=== PATIENT | female | born 1995 | race Two or more races ===

== ENCOUNTER 2020-04-30 20:30 | Inpatient (IN) | payer OTHER ==
[2020-04-30] MEDS ORDERED: DEXTROSE 5%-LACTATED RINGERS 500 ML IV ONE ×2 (21:00→22:00)
[2020-04-30] MEDS ORDERED: AMPICILLIN - 2 GM in SODIUM CHLORIDE 100 ML IVPB ONE (23:30)
[2020-05-01] MEDS ORDERED: AMPICILLIN SODIUM 2 GM VIAL ONE (00:23)
[2020-05-01] MEDS ORDERED: PROMETHAZINE HCL 25 MG/1 ML VIAL IVPB ONE (00:30)
[2020-05-01] MEDS ORDERED: BUTORPHANOL TARTRATE 1 MG/ML VIAL IVPB ONE (00:30)
[2020-05-01 00:43] LABS: BASO % 0.1 % (0-2.0); EOS % 0.2 % (0-4.5); HEMATOCRIT 29.4 % (32.4-45.2); HEMOGLOBIN 9.4 GM/dL (10.7-15.3); LYMPH % 9.1 % (8-40); MCH 25.5 pg (25.7-33.7); MCHC 32.1 g/dl (32.0-36.0); MEAN CELL VOLUME 79.4 fl (80-96); MEAN PLT VOLUME 10.3 fl (7.5-11.1); MONO % 6.7 % (3.8-10.2); NEUT % 83.9 % (42.8-82.8); PLATELET COUNT 217 K/MM3 (134-434); RDW 16.8 % (11.6-15.6); WHITE BLOOD COUNT 11.7 K/mm3 (4.0-10.0)
[2020-05-01] MEDS ORDERED: BUTORPHANOL TARTRATE 2 MG/ML VIAL ONE (00:48)
[2020-05-01] MEDS ORDERED: PROMETHAZINE HCL 25 MG/1 ML VIAL ONE (00:48)
[2020-05-01 00:51] LABS: INR 1.02 (0.83-1.09); PROTHROMBIN TIME (PATIENT) 12.5 SEC (9.7-13.0)
[2020-05-01 00:54] LABS: ACTIVATED PTT 27.2 SECONDS (25.2-36.5)
[2020-05-01 01:01] LABS: CALCIUM 8.4 mg/dL (8.5-10.1); POTASSIUM 3.6 mmol/L (3.5-5.1)
[2020-05-01 01:05] VITALS: BMI 27.9
[2020-05-01 01:05] LABS: CREATININE 0.6 mg/dL (0.55-1.3)
[2020-05-01 01:52] LABS: BLOOD UREA NITROGEN 2.8 mg/dL (7-18)
[2020-05-01] MEDS ORDERED: ELECTROLYTE-148 SOLN 500 ML IV ONE ×2 (03:15→04:13)
[2020-05-01] MEDS ORDERED: FENTANYL/BUPIVACAINE/NS/PF - PCEA - 50 ML DISP.SYRIN EP ONE (03:27)
[2020-05-01] MEDS ORDERED: AMPICILLIN SODIUM 1 GM VIAL ONE ×2 (03:27→07:38)
[2020-05-01] MEDS ORDERED: PCA PUMP NR ONE (03:28)
[2020-05-01] MEDS: AMPICILLIN - 1 GM in SODIUM CHLORIDE 100 ML IVPB SCH ×2 (03:30→07:40)
[2020-05-01] MEDS ORDERED: NALOXONE HCL 0.4 MG/ML VIAL IVPUSH PRN (03:31)
[2020-05-01] MEDS ORDERED: LIDO 2%/EPI 1:200000 PRESRVFRE (20 ML SDVIAL) ONE (03:34)
[2020-05-01] MEDS ORDERED: FENTANYL/BUPIVACAINE/NS/PF - PCEA - 50 ML DISP.SYRIN EP SCH (03:45)
[2020-05-01 04:01] LABS: HIV INTERPRETATION NEGATIVE (NEGATIVE)
[2020-05-01] MEDS ORDERED: ELECTROLYTE-148 SOLN 1,000 ML IV SCH (04:15)
[2020-05-01] MEDS ORDERED: OXYTOCIN 30 UNITS in 0.9% NS 30 UNIT/500 ML INFUS.BAG IVPB SCH (05:30)
[2020-05-01] MEDS: DEXTROSE 5%-LACTATED RINGERS 1,000 ML IV SCH (07:40)
[2020-05-01] MEDS ORDERED: OXYTOCIN 20 UNITS in 0.9% NS 20 UNIT/1,000 ML INFUS.BAG IV ONE ×2 (07:57→12:19)
[2020-05-01] MEDS ORDERED: OXYTOCIN 30 UNITS in 0.9% NS 30 UNIT/500 ML INFUS.BAG IVPB ONE (08:00)
[2020-05-01] MEDS ORDERED: ONDANSETRON 4 MG/2 ML VIAL IVPUSH PRN (09:19)
[2020-05-01] MEDS ORDERED: IBUPROFEN 600 MG TABLET (FP) PO PRN (09:29)
[2020-05-01] MEDS ORDERED: METHYLERGONOVINE MALEATE 0.2 MG/1 ML AMP IM PRN (09:29)
[2020-05-01] MEDS ORDERED: oxyCODONE HCL 5 MG TABLET PO PRN (09:29)
[2020-05-01] MEDS ORDERED: IBUPROFEN 800 MG/8 ML IJ IVPB PRN (09:29)
[2020-05-01] MEDS ORDERED: morphine SULFATE/PF 0.5 MG/ML (2cc Syringe - QUVA) ONE (09:40)
[2020-05-01] MEDS ORDERED: PHENYLEPHRINE HCL 10 MG/1 ML SINGLE DOSE VIAL ONE (09:41)
[2020-05-01] MEDS ORDERED: ceFAZolin SODIUM 1 GM VIAL ONE ×2 (09:41)
[2020-05-01] MEDS ORDERED: MIDAZOLAM HCL 2 MG/2 ML SINGLE DOSE VIAL ONE (10:06)
[2020-05-01] MEDS ORDERED: KETAMINE HCL 500 MG/10 ML VIAL ONE (10:09)
[2020-05-01] MEDS: OXYTOCIN 20 UNITS in 0.9% NS 20 UNIT/1,000 ML INFUS.BAG IV SCH ×2 (12:20→23:25)
[2020-05-01] MEDS: PRENATAL VITAMINS W/ FOLIC ACID TABLET (FP) PO SCH (13:00)
[2020-05-01] MEDS: SIMETHICONE 80 MG TAB.CHEW (FP) PO PRN (21:50)
[2020-05-01] MEDS: SENNOSIDES/DOCUSATE COMBO (SENNA PLUS) TABLET (UD) PO PRN (21:50)
[2020-05-01] MEDS: ACETAMINOPHEN 325 MG TABLET (FP) PO PRN (21:51)
[2020-05-01] MEDS: LABETALOL HCL 100 MG TABLET (FP) PO SCH (21:51)
[2020-05-01] MEDS: IBUPROFEN 600 MG TABLET (FP) PO PRN (21:51)
[2020-05-02] MEDS: IBUPROFEN 600 MG TABLET (FP) PO PRN ×3 (04:52→23:39)
[2020-05-02] MEDS: SIMETHICONE 80 MG TAB.CHEW (FP) PO PRN ×3 (04:52→23:39)
[2020-05-02] MEDS: ACETAMINOPHEN 325 MG TABLET (FP) PO PRN ×3 (04:52→23:39)
[2020-05-02] MEDS: oxyCODONE HCL 5 MG TABLET PO PRN ×2 (04:53→23:40)
[2020-05-02] MEDS: DEXTROSE 5%-LACTATED RINGERS 1,000 ML IV SCH (05:58)
[2020-05-02 08:34] LABS: BASO % 0.2 % (0-2.0); EOS % 0.3 % (0-4.5); HEMATOCRIT 23.5 % (32.4-45.2); HEMOGLOBIN 7.3 GM/dL (10.7-15.3); LYMPH % 5.3 % (8-40); MCH 24.7 pg (25.7-33.7); MCHC 30.9 g/dl (32.0-36.0); MEAN PLT VOLUME 9.5 fl (7.5-11.1); NEUT % 88.2 % (42.8-82.8); PLATELET COUNT 160 K/MM3 (134-434); RBC 2.94 M/mm3 (3.60-5.2); RDW 17.1 % (11.6-15.6); WHITE BLOOD COUNT 17.5 K/mm3 (4.0-10.0)
[2020-05-02] MEDS ORDERED: BISACODYL 10 MG SUPP.RECT RC PRN (09:29)
[2020-05-02] MEDS: OXYTOCIN 20 UNITS in 0.9% NS 20 UNIT/1,000 ML INFUS.BAG IV SCH (09:47)
[2020-05-02] MEDS: PRENATAL VITAMINS W/ FOLIC ACID TABLET (FP) PO SCH (09:52)
[2020-05-02] MEDS: LABETALOL HCL 100 MG TABLET (FP) PO SCH ×2 (11:53→22:12)
[2020-05-02] MEDS: SENNOSIDES/DOCUSATE COMBO (SENNA PLUS) TABLET (UD) PO PRN (22:12)
[2020-05-02] MEDS: FERROUS SO4 325 MG TABLET (FP) PO SCH (22:12)
[2020-05-02 22:41] VITALS: PULSE 88
[2020-05-03] MEDS: SIMETHICONE 80 MG TAB.CHEW (FP) PO PRN (08:40)
[2020-05-03] MEDS: IBUPROFEN 600 MG TABLET (FP) PO PRN (08:41)
[2020-05-03] MEDS: ACETAMINOPHEN 325 MG TABLET (FP) PO PRN (08:41)
[2020-05-03] MEDS: FERROUS SO4 325 MG TABLET (FP) PO SCH (09:57)
[2020-05-03] MEDS: PRENATAL VITAMINS W/ FOLIC ACID TABLET (FP) PO SCH (09:57)
[2020-05-03] MEDS: LABETALOL HCL 100 MG TABLET (FP) PO SCH (10:09)
[2020-05-03 10:16] VITALS: BP 119/82; TEMP 98.7
== END 2020-05-03 12:10 | disposition home or self-care (01) | DRG 540 ==
LOC: JDEL 20:30 → JLDR 23:30 → J3W 05-01 12:33
PROVIDERS: ADMIT Obstetrics & Gynecology; ATTEND Obstetrics & Gynecology
PROC: 10D00Z1 Extraction of Products of Conception, Low, Open Approach (ICD-10-PCS; principal; 2020-05-01)
DX: O62.1 Secondary uterine inertia (principal); O36.8330 Maternal care for abnormalities of the fetal heart rate or rhythm, third trimester, not applicable or unspecified; O36.63X0 Maternal care for excessive fetal growth, third trimester, not applicable or unspecified; O41.1230 Chorioamnionitis, third trimester, not applicable or unspecified; O69.81X0 Labor and delivery complicated by cord around neck, without compression, not applicable or unspecified; Z3A.39 39 weeks gestation of pregnancy; Z37.0 Single live birth
CPT/HCPCS: 36415; 80048; 85025; 85610; 85730; 86780; 86850; 86900; 86901; 87389; 88307-TC; C9803; U0003